=== PATIENT | male | born 1975 | race Hispanic/Latino ===

== ENCOUNTER 2016-08-05 09:54 | Outpatient (CLI) | payer MEDICARE ==
[2016-08-05 10:22] LABS: Hemoglobin A1c 4.6 % (4.0-6.0)
[2016-08-05 10:27] LABS: ALT (SGPT) 11 U/L (0-55); AST (SGOT) 12 U/L (5-34); Albumin 4.1 g/dL (3.5-5.0); Alkaline Phosphatase 66 U/L (40-150); Anion Gap 18 mmol/L (10-20); BUN (Urea Nitrogen) 18 mg/dL (8.9-20.6); Bilirubin, Total 0.3 mg/dL (0.2-1.2); Calc. Creatinine Clearance 0 mL/min (70-130); Calcium 9.1 mg/dL (7.8-10.44); Carbon Dioxide 23 mmol/L (22-29); Cardiac Risk 4.2 (Less than 4.5); Chloride 105 mmol/L (98-107); Cholesterol 190 mg/dL (< 200 Desired); Estimated GFR-MDRD 66; Globulin 3.2 g/dL (2.4-3.5); Glucose 93 mg/dL (70-105); HDL Cholesterol 45 mg/dL (>60 Neg Risk); LDL Cholesterol, Calculated 115 mg/dL; Potassium 4.2 mmol/L (3.5-5.1); Protein, Total 7.3 g/dL (6.0-8.3); Sodium 142 mmol/L (136-145); Triglycerides 150 mg/dL (Less than 150)
[2016-08-05 22:00] LABS: Creatinine, Urine 207.15 mg/dL (63-166); Microalbumin Urine 4.2 mg/dL (0.5-50.0); Microalbumin/Creat Ratio 20.3 mg/g (Less than 30)
== END 2016-08-05 09:55 | disposition home or self-care (01) ==
LOC: MADLABBHPM 09:54
PROVIDERS: ATTEND Family Medicine
DX: Z09 Encounter for follow-up examination after completed treatment for conditions other than malignant neoplasm (principal); Z87.898 Personal history of other specified conditions
CPT/HCPCS: 36415; 80053; 80061; 82043; 83036